=== PATIENT | female | born 2000 | race African-American/Black ===

== ENCOUNTER 2024-10-09 03:53 | Emergency (ER) | payer BC, SELFPAY ==
[2024-10-09 03:57] VITALS: BP 158/109; PULSE 97; RESP 22; TEMP 37.1; O2SAT 100
--- NOTE | 2024-10-09 04:26 | NUR.NOTE ---
accompanied Dr. Arcos in room for internal exam and ultrasound. Pt in position of comfort, tolerated exam well.
--- NOTE | 2024-10-09 04:40 | ED.GENADUL_ITS ---
Discharge Plan Disposition Patient Disposition: Home Condition: Stable Discharge Details Clinical Impression: Miscarriage ED Provider: Erik Arcos Home Meds and New Rx's Prescriptions: No Action PNV 119-iron fum-folic acid 29 mg iron- 1 mg tablet 1 tab PO DAILY Discharge Instructions Instructions: Loss (Miscarriage) ED Additional Instructions: At this time there is concern that your has transitioned into a miscarriage. You will likely continue to have some bleeding and clots over the next few days. Please drink plenty of water and stay well-hydrated. Please follow-up closely with your obstetrics full decator operator. If you notice any worsening of your symptoms, or any new symptoms such as vomiting, diarrhea, fever, chills, shortness of breath, chest pain, numbness, weakness, or fainting , please return immediately to the emergency department for reevaluation. Please follow up with your primary care provider as soon as possible for reassessment and reevaluation. As always, it was a pleasure participating in your medical care today. Referrals: Ashley Corado MD [ [facility] STAFF PHYSICIAN] - Hillary Genao DO [OSTEOPATHIC DOCTOR] - [facility] General Date/Time Provider Initiated Documentation: 10/09/24 03:54 . HPI Narrative: This is a very pleasant 24-year-old -[place] female who has no significant past medical history aside for mild anemia who is currently a at roughly 8 weeks who is taking a vitamin, who presents today for vaginal bleeding. Patient noted that about 6 to 7 days ago she had very mild brown spotting. However 3 days ago on Wednesday it got notably worse, then on Wednesday became red and bright red blood. This morning she had notable cramps and clots that came out and she was concerned because of this. Patient came to the ER for further assessment. No family history of bleeding problems or sickle cell, however the patient's mother did have miscarriages. Patient denies any other complaints at this time. She is unsure of her Rh status. 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 3.ENT: Atraumatic external nose and ears. Moist MM. Neck: Symmetric, trachea midline, No thyromegaly. 4.CVS: +S1/S2, Peripheral pulses 2+ and equal in all extremities. Brisk capillary refill in all extremities. 5.RESP: Unlabored respiratory effort. Clear to auscultation bilaterally. No wheezes rales or rhonchi 6.GI: Soft, Nontender/Nondistended, No hepatosplenomegaly. No guarding or rebound. Vaginal exam was performed with female nurse Irnee at bedside. Patient demonstrates a somewhat posterior cervix which does feel open on exam with mild dilatation. 7.MSK: Normocephalic/Atraumatic, Extremities w/o deformity or ttp No cyanosis or clubbing, Normal movement of all extremities 8.Skin: Warm, Dry. No rashes or lesions. 9.Neuro: optometric aide II-XII grossly intact. Sensation grossly intact, no focal neurologic deficits. 10.Psych: (AAO) x3. Appropriate mood and affect, but tearful Course Vital Signs Vital signs: Vital Signs Temperature 37.1 C 10/09/24 03:57 Pulse 97 H 10/09/24 03:57 Respiratory Rate 22 10/09/24 03:57 Blood Pressure 158/109 H 10/09/24 03:57 Pulse Oximetry 100 10/09/24 03:57 Temperature 37.1 C 10/09/24 03:57 Pulse 97 H 10/09/24 03:57 Respiratory Rate 22 10/09/24 03:57 Blood Pressure 158/109 H 10/09/24 03:57 Pulse Oximetry 100 10/09/24 03:57 Oxygen Delivery Method Room Air 10/09/24 03:57 Oxygen Flow Rate 0 10/09/24 03:57 Medical Decision Making This is a very pleasant 24-year-old -[place] female who has no significant past medical history aside for mild anemia who is currently a at roughly 8 weeks who is taking a vitamin, who presents today for vaginal bleeding. Patient noted that about 6 to 7 days ago she had very mild brown spotting. However 3 days ago on Saturday it got notably worse, then on Wednesday became red and bright red blood. This morning she had notable cramps and clots that came out and she was concerned because of this. Patient came to the ER for further assessment. No family history of bleeding problems or sickle cell, however the patient's mother did have miscarriages. Patient denies any other complaints at this time. She is unsure of her Rh status. Exam demonstrates a pleasant but tearful female, no signs of an acute surgical abdomen. Symptoms appear inconsistent with ovarian torsion or ectopic . Bedside ultrasound was performed and shows a thickened uterus and endometrial stripe, however I was unable to visualize any active fetus. Vaginal exam demonstrates bright red blood as well as an open cervix. Symptoms are concerning for incomplete versus complete miscarriage. We will test the patient's Rh status. I had a very long discussion with the patient regarding her symptoms and the current expected status of her and the miscarriage. She understands. Patient's Rh test was negative. Patient will be discharged home with close follow-up with obstetrics. Diagnosis incomplete miscarriage. I have extensively reviewed the treatment plan and discharge instructions with the patient and their family. I have addressed all patient concerns at this time. The patient and family was made aware of what symptoms to monitor for that would warrant a return to the emergency department. Discussed the plan with the patient and family, they demonstrate verbal understanding and agreement with our assessment and plan at this time. The documentation in this chart was dictated using [employer] dictation software. Please excuse any dictation errors. 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 Pets and animals: Yes Pets and animals: dog(s) Current gender identity: female What type of physical activity do you participate in: none Special nghia needs: No Agree to transfusion: Yes Female Reproductive History Menstrual Age of Menarche: 9 History History 2 0 Para Hx # Term Pregnancies Multiple births Hx # Pregnancies Ectopic pregnancies AB induced Hx Number of Living Children AB spontaneous POCUS Exam (ED) Limited OB Exam DATE OF EXAM:: 10/09/24 TIME OF EXAM:: 04:48 PROVIDER THAT PERFORMED THE STUDY: Erik Arcos IS THIS A REPEAT EXAM DURING THIS ENCOUNTER: No Type of Exam: Pelvic OB Trans Abdominal (Vaginal bleeding) REASON FOR EXAM: Vaginal Bleeding VISUALIZED STRUCTURES: Cervix and Uterus (Uterus is thickened with a thickened endometrial stripe, but no gestational sac or pole is noted) PERTINENT FINDINGS/IMPRESSION: No apparent IUP Exam Complete.
[2024-10-09 05:19] VITALS: BP 125/56; PULSE 75; RESP 16; TEMP 36.8; O2SAT 100
[2024-10-09 05:40] LABS: Lab Add On Test DONE
[2024-10-09 05:58] LABS: HCG Quant, Pregnancy 583 mIU/mL (1-3)
== END 2024-10-09 05:26 | disposition home or self-care (01) ==
LOC: ER 05:27
PROVIDERS: Emergency Provider Student in an Organized Health Care Education/Training Program
DX: O03.4 Incomplete spontaneous abortion without complication (principal); Z3A.01 Less than 8 weeks gestation of pregnancy
CPT/HCPCS: 36415; 76815; 86900; 86901; 99284; 84702

== ENCOUNTER 2025-05-17 15:54 | Outpatient (CLI) | payer BC, SELFPAY ==
[2025-05-17 15:12] LABS: Abs Immature Grans 0.01 10^3/uL (0.0-0.06); HCT 36.7 % (36.0-46.0); HGB 11.8 g/dL (11.2-15.7); Immature Grans % 0.1 %; MCH 27.2 pg (27.0-33.0); MCHC 32.2 % (32.0-36.0); MCV 85 fL (80-95); MPV 11.4 fL (8.0-11.0); Platelet Count 274 10^3/uL (130-400); RBC 4.34 10^6/uL (3.93-5.22); RDW 14.6 % (11.7-14.6); RDW-SD 45.1 fL; WBC 8.29 10^3/uL (4.4-10.8)
[2025-05-17 16:19] LABS: ALT 9 U/L (10-49); AST 17 U/L (<34); Albumin 4.2 g/dL (3.4-5.0); Alkaline Phosphatase 47 U/L (46-116); Anion Gap 7.7 mmol/L (3-11); BUN 12 mg/dL (9-23); Bilirubin, Total 0.30 mg/dL (0.2-1.2); CO2 28.3 mmol/L (20.0-31.0); Calcium 9.2 mg/dL (8.3-10.6); Chloride 105 mmol/L (98-107); Ferritin 7 ng/mL (7-271); Glucose 101 mg/dL (74-106); Potassium 3.8 mmol/L (3.5-5.1); Sodium 141 mmol/L (136-145); TSH (W/Ref FT4) 0.80 uIU/mL (0.55-4.78); Total Protein 7.1 g/dL (5.7-8.2)
[2025-05-17 16:31] LABS: Iron 24 ug/dL (50-170); Total Iron Binding Capacity 385 ug/dL (250-425); Transferrin Sat 6 % (15-50)
== END 2025-05-17 15:55 | disposition home or self-care (01) ==
LOC: LBO 15:55
PROVIDERS: Visit Provider Obstetrics & Gynecology
DX: R11.2 Nausea with vomiting, unspecified (principal); N93.9 Abnormal uterine and vaginal bleeding, unspecified
CPT/HCPCS: 36415; 80053; 82728; 83540; 83550; 84443; 85025